=== PATIENT | female | born 1980 | race African-American/Black ===

== ENCOUNTER 2020-01-16 10:38 | Observation (INO) ==
[2020-01-16 11:29] LABS: Basophils % 0.3 % (0.0-0.8); Eosinophils # 0.2 10*3/uL (0.0-0.87); Eosinophils % 2.8 % (0.00-10.9); Hematocrit 58.4 VOL% (35.7-47.0); Hemoglobin 18.4 GM/DL (12.0-16.0); Immature Granulocytes % 0.6 %; Immature Granulocytes Absolute 0.04 #; Lymphocytes # 1.3 10*3/uL (1.4-4.0); Lymphocytes % 19.9 % (21.3-54.2); Mean Corpuscular HGB Conc 31.5 GM/DL (32-36); Mean Corpuscular Volume 93.4 FL (87-102); Mean Platelet Volume 10.6 FL (9.6-12.0); Monocytes % 11.5 % (1.7-12.7); Neutrophils % 64.9 % (38.7-73.9); Platelet Count 263 T/CUMM (130-400); Red Blood Count 6.25 MC/CUMM (3.8-5.5); Red Cell Distribution Width 13.3 % (9.3-17.3); White Blood Count 6.4 T/CUMM (4-12)
[2020-01-16 11:37] LABS: INR 1.1; PT Patient Result 11.9 SECS (9.8-11.9)
[2020-01-16 12:23] LABS: Alanine Aminotransferase 25 U/L (13-56); Albumin 3.1 G/DL (3.4-5.0); Alkaline Phosphatase 64 U/L (45-117); Aspartate Amino Transferase 24 U/L (0-37); Bilirubin,Total < 0.39 MG/DL (0.2-1.0); Blood Urea Nitrogen 16 MG/DL (7-18); Calcium 8.7 MG/DL (8.5-10.1); Estimated Glom Filtration Rate 98 ML/MIN; Glucose 129 MG/DL (74-106); Osmolality,Calculated 277.7 MOS/KG (273-304); Total Protein 7.7 G/DL (6.4-8.3)
[2020-01-16] MEDS ORDERED: SODIUM CHLORIDE 0.9% 500 ML IV STA (12:32)
[2020-01-16 12:33] LABS: Ferritin 58.1 ng/ml (8-252)
[2020-01-16] MEDS ORDERED: ENOXAPARIN 120 MG/0.8 ML SYRINGE SUBCUT STA (13:28)
[2020-01-16] MEDS ORDERED: cefTRIAXone 1,000 MG in SODIUM CHLORIDE 0.9% 100 ML IV STA (14:00)
[2020-01-16 14:59] LABS: Barbiturates Screen,Urine Negative (Negative); Benzodiazepines Screen,Urine Negative (Negative); Cannabinoid Screen,Urine Negative (Negative); Opiate Screen,Urine Positive (Negative); Phencyclidine Screen,Urine Negative (Negative)
[2020-01-16] MEDS ORDERED: ACETAMINOPHEN 325 MG TABLET PO PRN (15:40)
[2020-01-16] MEDS ORDERED: MORPHINE 4 MG/1 ML VIAL IV PRN (15:40)
[2020-01-16] MEDS ORDERED: DEXTROSE 50% 25 GM/50 ML VIAL IV PRN (15:40)
[2020-01-16] MEDS ORDERED: GLUCAGON 1 MG VIAL IM PRN (15:40)
[2020-01-16] MEDS ORDERED: ENOXAPARIN 40 MG/0.4 ML SYRINGE SUBCUT SCH (16:00)
[2020-01-16] MEDS ORDERED: AZITHROMYCIN INJ 500 MG in SODIUM CHLORIDE 0.9% 250 ML IV SCH (16:00)
[2020-01-16] MEDS: cefTRIAXone 1,000 MG in SYRINGE 1 EACH IV SCH (17:51)
[2020-01-16] MEDS: SODIUM CHLORIDE 0.9% 1,000 ML IV SCH (17:56)
[2020-01-16] MEDS: INSULIN REGULAR 100 UNIT/ML SUBCUT SCH ×2 (18:29→20:30)
[2020-01-16] MEDS: ONDANSETRON 4 MG/2 ML VIAL IV PRN (19:20)
[2020-01-16] MEDS: carvediloL 12.5 MG TABLET PO SCH (20:30)
[2020-01-17] MEDS: ONDANSETRON 4 MG/2 ML VIAL IV PRN ×4 (00:15→18:14)
[2020-01-17] MEDS ORDERED: ENOXAPARIN 120 MG/0.8 ML SYRINGE SUBCUT SCH (01:00)
[2020-01-17 07:43] LABS: Ferritin 61.7 ng/ml (8-252)
[2020-01-17 07:46] LABS: Basophils % 0.2 % (0.0-0.8); Hematocrit 53.9 VOL% (35.7-47.0); Hemoglobin 17.3 GM/DL (12.0-16.0); Immature Granulocytes % 0.2 %; Immature Granulocytes Absolute 0.01 #; Lymphocytes # 1.6 10*3/uL (1.4-4.0); Lymphocytes % 30.6 % (21.3-54.2); Mean Corpuscular HGB Conc 32.1 GM/DL (32-36); Mean Corpuscular Volume 92.3 FL (87-102); Monocytes % 10.8 % (1.7-12.7); Neutrophils % 58.2 % (38.7-73.9); Platelet Count 209 T/CUMM (130-400); Red Blood Count 5.84 MC/CUMM (3.8-5.5); Red Cell Distribution Width 13.7 % (9.3-17.3); White Blood Count 5.2 T/CUMM (4-12)
[2020-01-17 08:02] LABS: Alanine Aminotransferase 21 U/L (13-56); Albumin 2.6 G/DL (3.4-5.0); Alkaline Phosphatase 47 U/L (45-117); Aspartate Amino Transferase 28 U/L (0-37); Bilirubin,Total < 0.39 MG/DL (0.2-1.0); Blood Urea Nitrogen 27 MG/DL (7-18); Calcium 8.2 MG/DL (8.5-10.1); Estimated Glom Filtration Rate 65 ML/MIN; Glucose 117 MG/DL (74-106); HDL Cholesterol 39 MG/DL (40-60); Osmolality,Calculated 280.7 MOS/KG (273-304); Risk Ratio 4.69; Total Protein 6.4 G/DL (6.4-8.3); Triglycerides 162 MG/DL (2-150); VLDL CHOLESTEROL 32.4 MG/DL
[2020-01-17] MEDS: PANTOPRAZOLE 40 MG TABLET PO SCH (09:08)
[2020-01-17] MEDS: carvediloL 12.5 MG TABLET PO SCH ×2 (09:08→21:28)
[2020-01-17] MEDS: FUROSEMIDE 40 MG TABLET PO SCH (09:08)
[2020-01-17] MEDS: cefTRIAXone 1,000 MG in SYRINGE 1 EACH IV SCH (09:09)
[2020-01-17] MEDS: ENOXAPARIN 100 MG/ML SYRINGE SUBCUT SCH ×2 (09:09→21:30)
[2020-01-17] MEDS: AZITHROMYCIN 250 MG TABLET PO SCH (09:13)
[2020-01-17] MEDS: INSULIN REGULAR 100 UNIT/ML SUBCUT SCH ×4 (10:09→21:27)
[2020-01-17] MEDS: SODIUM CHLORIDE 0.9% 1,000 ML IV SCH ×3 (12:14→21:30)
[2020-01-17] MEDS ORDERED: DIGOXIN 0.25 MG TABLET PO SCH (13:00)
[2020-01-17 16:38] LABS: Bacteria,Urine Occasional /HPF (Few); Bilirubin,Urine Negative (Negative); Blood, Urine Negative (Negative); Glucose,Urine (UA) Negative (Negative); Hyaline Casts,Urine 11 /LPF (0-3); Ketones,Urine Negative (Negative); Mucus,Urine Occasional /LPF (Occasional); Nitrite,Urine Negative (Negative); Protein,Urine Negative; RBC,Urine <1 /HPF (0-4); Squamous Epithelial Cell,Urine Occasional /HPF (0-10); Urine Appearance CLEAR (Clear); Urine Color Yellow (Yellow); Urine Specific Gravity 1.024 (1.001-1.035); Urine Urobilinogen < 2.0 EU/DL (0.2-1.0); WBC,Urine 1 /HPF (0-6)
[2020-01-18] MEDS: INSULIN REGULAR 100 UNIT/ML SUBCUT SCH ×2 (07:26→13:00)
[2020-01-18] MEDS: SODIUM CHLORIDE 0.9% 1,000 ML IV SCH ×2 (07:27)
[2020-01-18] MEDS: carvediloL 12.5 MG TABLET PO SCH (08:21)
[2020-01-18] MEDS: cefTRIAXone 1,000 MG in SYRINGE 1 EACH IV SCH (08:22)
[2020-01-18] MEDS: AZITHROMYCIN 250 MG TABLET PO SCH (08:22)
[2020-01-18] MEDS: FUROSEMIDE 40 MG TABLET PO SCH (08:22)
[2020-01-18] MEDS: ENOXAPARIN 100 MG/ML SYRINGE SUBCUT SCH (08:22)
[2020-01-18] MEDS: PANTOPRAZOLE 40 MG TABLET PO SCH (08:22)
[2020-01-18 12:02] VITALS: BP 105/51
== END 2020-01-18 13:02 | disposition home or self-care (01) ==
LOC: N.EDINP 10:38 → N.ED 10:38 → SUATTDRO 15:40 → N.EDINP 16:39 → N.2E 16:46
PROVIDERS: ADMIT Internal Medicine; ATTEND Internal Medicine